=== PATIENT | female | born 1970 | race Caucasian/White ===

== ENCOUNTER 2018-01-18 07:05 | Outpatient (CLI) | payer OTHER | END 2018-01-18 07:11 | disposition home or self-care (01) | LOC: SONOGRAMA 07:05 | DX: E04.1 Nontoxic single thyroid nodule (principal) ==

== ENCOUNTER 2018-06-14 07:39 | Outpatient (CLI) | payer OTHER | END 2018-06-14 08:00 | disposition home or self-care (01) | LOC: SONOGRAMA 07:39 | DX: E04.1 Nontoxic single thyroid nodule (principal) ==